=== PATIENT | female | born 1960 | race Caucasian/White ===

== ENCOUNTER 2016-12-01 10:44 | Emergency (ER) | payer OTHER ==
[~2016-12-01] VITALS: Ht 160 cm; Wt 51.8 kg
[2016-12-01 10:46] VITALS: BP 154/102; PULSE 91; RESP 18; TEMP 97.5; O2SAT 99
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
[2016-12-01] MEDS ORDERED: MOTR200T4 PO (11:49)
[2016-12-01] MEDS ORDERED: CYCL1TAB29 PO (11:49)
== END 2016-12-01 12:00 | disposition home or self-care (01) ==
LOC: PHEFT 10:44
DX: M62.838 Other muscle spasm (principal); S29.012A Strain of muscle and tendon of back wall of thorax, initial encounter; V43.62XA Car passenger injured in collision with other type car in traffic accident, initial encounter; Y93.9 Activity, unspecified; Y92.410 Unspecified street and highway as the place of occurrence of the external cause; Y99.8 Other external cause status
CPT/HCPCS: 71101; 99283